=== PATIENT | male | born 1970 | race African-American/Black ===

== ENCOUNTER 2017-02-14 12:15 | Emergency (ER) | payer OTHER ==
--- NOTE | ~2017-02-14 | CT4 ---
[facility] A Service [facility] RADIOLOGY TEXT RESULTS PATIENT: MONIKA NICHOLSON LOCATION: [facility] : 74 UNIT #: [id number] AGE: [address]: Romana Hermosillo APRN SEX: M ORDER DR: [id number] [facility] [address] [place], [place] [address] [id number] E MR#: [id number] Acc #: [id number] NAME: MONIKA NICHOLSON. : 1970 SEX: M STUDY DATE/TIME: 02/14/2017 15:46 UNIT: [facility] ROOM: STUDY DESCRIPTION: CT Abd and Pelv Wo Cont Attending Physician: Romana Hermosillo A.P.R.N. Ordering Physician: Kevin Nieto D.O. Primary Care Physician: Rambo Avila M.D. MEDICAL IMAGING REPORT This report is preliminary unless electronic signature is present EXAM CT of the abdomen and pelvis without contrast INDICATIONS Low back pain radiating to right leg for 3 days. Previous bowel resection. TECHNIQUE CT abdomen and pelvis performed without contrast. Coronal and sagittal reformatted images obtained. This CT exam was performed with one or more of the following radiation dose reduction techniques: Automatic exposure control, adjustment of mA and/or kV according to patient size, and iterative reconstruction. Compared with 09/24/2015. FINDINGS The lung bases are clear. The liver, gallbladder and spleen are unremarkable. The kidneys are unremarkable. No renal stone. The adrenal glands are unremarkable. The pancreas is unremarkable. No evidence for bowel obstruction. Large amount of stool in the colon. Postop changes within the small bowel within the upper pelvis. No free fluid. Normal appendix. Remainder of the pelvis is unremarkable. Bone windows demonstrate a stable Schmorl node lower endplate of L3. IMPRESSION 1. No acute findings in the abdomen or pelvis. 2. No evidence for kidney stone. 3. Stable postop changes within the small bowel. Dictated by... Ryan Cameron M.D. [facility] A Service of [facility] RADIOLOGY TEXT RESULTS PATIENT: MONIKA NICHOLSON LOCATION: [facility] : 72 UNIT #: [id number] AGE: [address]: Romana Hermosillo APRN SEX: M ORDER DR: THIS IS AN ELECTRONICALLY VERIFIED REPORT Ryan Cameron M.D. at 02/15/2017 10:06 AM Jet TD: 02/15/2017 00:34 JOB #: [id number] MEDICAL IMAGING REPORT Page 1 of 1 COPY
[~2017-02-14 12:15] MED LIST: ACETAMINOPHEN PO; ACETAMINOPHEN650 M4 PO; COLACE PO; DARVOCET-N 1001 TAB PO; FLEXERIL PO; LEVAQUIN PO; NO MEDICATIONS; PANTOPRAZOLE SO40 MG PO; TYLENOL #3 PO; ZITHROMAX PO
[2017-02-14 16:15] LABS: URINE SOURCE CLEAN CATCH
[2017-02-14 16:25] LABS: URINE APPEARANCE CLEAR; URINE BILIRUBIN NEG (NEG); URINE BLOOD NEG (NEG); URINE COLOR YELLOW; URINE GLUCOSE NEG (NEG); URINE KETONE NEG (NEG); URINE LEUKOCYTE ESTERASE NEG (NEG); URINE NITRATE NEG (NEG); URINE PH 6.5 (5-8); URINE PROTEIN NEG (NEG); URINE SPECIFIC GRAVITY 1.007 (1.003-1.035)
[2017-02-14 16:30] LABS: CULTURE INDICATED? NO
[2017-02-14 17:30] LABS: BASOPHIL% 0.8 % (0-2.5); EOSINOPHIL# 0.2 X10e3 (0-0.7); EOSINOPHIL% 4.2 % (0.0-7.0); HEMATOCRIT 45.2 % (38.0-50.0); HEMOGLOBIN 14.8 gm/dL (13.0-16.0); LYMPHOCYTE# 2.8 X10e3 (1.0-3.5); LYMPHOCYTE% 49.5 % (17.0-45.0); MEAN CELL VOLUME 92.7 FL (83-96); MEAN CORPUSCULAR HEMOGLOBIN 30.3 PG (28-34); MEAN CORPUSCULAR HGB CONC 32.7 g/dL (30-36); MEAN PLATELET VOLUME 8.1 FL (6.5-11.5); MONOCYTE# 0.6 X10e3 (0-1.0); MONOCYTE% 10.7 % (3.0-12.0); NEUTROPHIL% 34.8 % (40-75); PLATELET COUNT 193 X10e3 (140-420); RED BLOOD COUNT 4.88 X10e (3.90-5.60); RED CELL DISTRIBUTION WIDTH 12.6 % (11.0-15.5); WHITE BLOOD COUNT 5.7 X10e3 (4.0-10.5)
[2017-02-14 17:37] LABS: DIFF IND NO
[2017-02-14 19:08] LABS: ALBUMIN SERUM 4.7 g/dL (3.5-5.0); BILIRUBIN, DIRECT 0.1 mg/dL (0.0-0.2); BILIRUBIN,INDIRECT 0.4 mg/dL (0.0-0.9); BILIRUBIN,TOTAL 0.5 mg/dL (0.2-2.0); BUN/CREATININE RATIO 12.22; CALCIUM SERUM 9.9 mg/dL (8.4-10.2); CREATININE SERUM 0.9 mg/dL (0.6-1.4); POTASSIUM 4.2 mmol/L (3.5-5.1); PROTEIN TOTAL SERUM 8.7 g/dL (6.0-8.3)
== END 2017-02-14 19:30 | disposition home or self-care (01) ==
LOC: CFTX 12:15 → CED 12:15 → CFTX 15:37
PROVIDERS: Nurse Practitioner
DX: R10.9 Unspecified abdominal pain (principal); H61.21 Impacted cerumen, right ear
CPT/HCPCS: 36415; 69209; 74176; 80048; 80076; 81003; 85025; 96372; 99284; J1885

== ENCOUNTER 2017-02-22 18:10 | Emergency (ER) | payer OTHER ==
--- NOTE | ~2017-02-22 | CR151 ---
[facility] A Service [facility] RADIOLOGY TEXT RESULTS PATIENT: MONIKA NICHOLSON LOCATION: [facility] : 72 UNIT #: [id number] AGE: [address]: MOOSE SIMMONS APRN SEX: M ORDER DR: [id number] [id number] [place], [place] [address] [id number] E MR#: [id number] Acc #: [id number] NAME: MONIKA NICHOLSON. : 1970 SEX: M STUDY DATE/TIME: 02/22/2017 19:20 UNIT: [facility] ROOM: STUDY DESCRIPTION: CR Hip Min 2 Views Rt Attending Physician: Moose Simmnos Aprn Ordering Physician: Moose Simmons Aprn Primary Care Physician: Rambo Avila M.D. MEDICAL IMAGING REPORT This report is preliminary unless electronic signature is present EXAM Right hip series dated 02/22/2017. COMPARISON None. HISTORY Right hip pain for 3 days post injury. FINDINGS Two views of the right hip were obtained. AP and oblique examination of the hip shows adequate mineralization of the bones and a normal anatomic relationship of the femoral head with the acetabulum. There are no hypertrophic changes, fractures, dislocation, or joint capsular distension. No radiopaque foreign body is present about the soft tissues of the hip. IMPRESSION Normal hip. Dictated by... Haseeb Galindo M.D. THIS IS AN ELECTRONICALLY VERIFIED REPORT Haseeb Galindo M.D. at 02/23/2017 2:43 PM CPR/psc TD: 02/23/2017 03:56 JOB #: [id number] MEDICAL IMAGING REPORT [facility] A Service [facility] RADIOLOGY TEXT RESULTS PATIENT: MONIKA NICHOLSON LOCATION: [facility] : 74 UNIT #: [id number] AGE: [address]: MOOSE SIMMONS APRN SEX: M ORDER DR: Page 1 of 1 COPY
--- NOTE | ~2017-02-22 | CR253 ---
[facility] A Service of [facility] RADIOLOGY TEXT RESULTS PATIENT: MONIKA NICHOLSON LOCATION: [facility] : 74 UNIT #: [id number] AGE: [address]: MOOSE SIMMONS APRN SEX: M ORDER DR: [id number] [facility] [address] [place], [place] [address] [id number] E MR#: [id number] Acc #: [id number] NAME: MONIKA NICHOLSON. : 1970 SEX: M STUDY DATE/TIME: 02/22/2017 19:28 UNIT: [facility] ROOM: STUDY DESCRIPTION: CR Tibia and Fibula 2 Views Rt Attending Physician: Moose Simmons Aprn Ordering Physician: Moose Simmons Aprn Primary Care Physician: Rambo Avila M.D. MEDICAL IMAGING REPORT This report is preliminary unless electronic signature is present EXAM Right tib-fib series dated 02/22/2017. COMPARISON Right knee series dated 02/22/2017. HISTORY Status post injury 3 days ago with right tib-fib pain. FINDINGS Two views of the right tibia and fibula were obtained. There is no evidence of fracture, dislocation, or radiopaque foreign body. IMPRESSION Normal tibia and fibula. Dictated by... Haseeb Galindo M.D. THIS IS AN ELECTRONICALLY VERIFIED REPORT Haseeb Galindo M.D. at 02/23/2017 2:43 PM CPR/psc TD: 02/23/2017 04:11 JOB #: [id number] MEDICAL IMAGING REPORT Page 1 of 1 COPY
--- NOTE | ~2017-02-22 | CR173 ---
[facility] A Service of [facility] RADIOLOGY TEXT RESULTS PATIENT: MONIKA NICHOLSON LOCATION: [facility] : 74 UNIT #: [id number] AGE: [address]: MOOSE SIMMONS APRN SEX: M ORDER DR: [id number] [facility] [address] [place], [place] [address] [id number] E MR#: [id number] Acc #: [id number] NAME: MONIKA NICHOLSON. : 1970 SEX: M STUDY DATE/TIME: 02/22/2017 19:23 UNIT: [facility] ROOM: STUDY DESCRIPTION: CR Knee 3 Views Rt Attending Physician: Moose Simmons Aprn Ordering Physician: Moose Simmons Aprn Primary Care Physician: Rambo Avila M.D. MEDICAL IMAGING REPORT This report is preliminary unless electronic signature is present EXAM Right knee series, 02/22/2017 COMPARISON Right knee pain for 3 days post injury. FINDINGS Three views of the right knee were obtained. No acute displaced fracture or dislocation is seen. Patellofemoral and tibiofemoral joints are intact. In the sunrise view, the soft tissue involving the skin and subcutaneous portions appear to be slightly thickened then expected, anterior to the patella. Mild swelling in this region cannot be completely excluded in the appropriate clinical setting. No associated radiopaque foreign bodies are seen. Dictated by... Haseeb Galindo M.D. THIS IS AN ELECTRONICALLY VERIFIED REPORT Haseeb Galindo M.D. at 02/23/2017 2:43 PM CPR/annia TD: 02/23/2017 04:11 JOB #: [id number] MEDICAL IMAGING REPORT Page 1 of 1 COPY
== END 2017-02-22 20:57 | disposition home or self-care (01) ==
LOC: CFTX 18:10 → CED 18:10 → CFTX 19:30
DX: S80.01XA Contusion of right knee, initial encounter (principal); Z98.890 Other specified postprocedural states; W06.XXXA Fall from bed, initial encounter; Y92.9 Unspecified place or not applicable
CPT/HCPCS: 29530; 73502; 73562; 73590; 99283